=== PATIENT | male | born 1990 | race African-American/Black ===

== ENCOUNTER 2019-12-14 13:45 | Emergency (ER) | payer OTHER, SELFPAY ==
[2019-12-14 14:18] VITALS: BP 117/96; PULSE 75; RESP 18; O2SAT 99
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
[2019-12-14] MEDS: HYDROcodone 5/Acetaminophen 325 TAB PO (14:52)
[2019-12-14] MEDS: Ondansetron O.D.T. 4 MG TABEF PO (14:53)
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
[2019-12-14 16:25] VITALS: BP 150/96; PULSE 95; RESP 16; TEMP 37; O2SAT 97
[2019-12-14 16:32] VITALS: BP 150/96; PULSE 95; RESP 16; TEMP 37; O2SAT 97
== END 2019-12-14 17:20 | disposition home or self-care (01) ==
LOC: ER 17:01
PROVIDERS: Emergency Provider Registered Nurse Emergency
DX: S42.022A Displaced fracture of shaft of left clavicle, initial encounter for closed fracture (principal); V18.0XXA Pedal cycle driver injured in noncollision transport accident in nontraffic accident, initial encounter; Y93.55 Activity, bike riding
CPT/HCPCS: 23500; 71046; 73000